=== PATIENT | male | born 1960 | race Caucasian/White ===

== ENCOUNTER → 2020-05-03 | Outpatient (CLI) | payer MEDICARE ==
[~2020-05-03] MED LIST: GADOTERATE 7.5 MMOL/15 ML SYR ONE
== END | disposition home or self-care (01) ==
LOC: CFH 12:44
PROVIDERS: ATTEND Specialist
DX: G35 Multiple sclerosis (principal); G31.89 Other specified degenerative diseases of nervous system
CPT/HCPCS: 70553; A9575